=== PATIENT | male | born 1965 ===

== ENCOUNTER 2018-02-17 09:57 | Outpatient (CLI) | payer OTHER ==
--- NOTE | 2018-02-18 10:28 | XRay Report ---
FINAL REPORT EXAM: XRAY SHOULDER BILATERAL HISTORY: MUSCULAR DYSTRPOPHY, DIABETES, HIGH BLOOD PRESSURE, DISABILITY TECHNIQUE: 3 views of the right shoulder 3 views of the left shoulder PRIORS: None. FINDINGS: Right shoulder: The glenohumeral and acromioclavicular joints are normally aligned. There is mild inferior osteophyte formation of the acromioclavicular joint. The bones are normally mineralized. The soft tissues are unremarkable. Left shoulder: The glenohumeral and acromioclavicular joints are normally aligned. There is mild inferior osteophyte formation of the acromioclavicular joint. The bones are normally mineralized. The soft tissues are unremarkable. IMPRESSION: Mild osteoarthrosis of the bilateral acromioclavicular joints. Otherwise, normal bilateral shoulders
--- NOTE | 2018-02-18 10:28 | XRay Report ---
FINAL REPORT EXAM: XRAY LUMBAR AND SACRUM HISTORY: MUSCULAR DYSTRPOPHY, DIABETES, HIGH BLOOD PRESSURE, DISABILITY TECHNIQUE: 4 views of the lumbar spine PRIORS: None. FINDINGS: The lumbar vertebral bodies are normal in height. Vertebral alignment is normal. There is mild endplate osteophyte formation at T9-10, L1-2, L3-4 and L4-5. Otherwise, the disc spaces appear well-preserved. The soft tissues are unremarkable. IMPRESSION: Mild multilevel degenerative disc disease
--- NOTE | 2018-02-18 10:28 | XRay Report ---
FINAL REPORT EXAM: XRAY FOOT 2 VIEWS RIGHT HISTORY: MUSCULAR DYSTRPOPHY, DIABETES, HIGH BLOOD PRESSURE, DISABILITY TECHNIQUE: Two views of the right foot PRIORS: None. FINDINGS: The bones are normally aligned and diffusely demineralized. There is subchondral sclerosis and mild flattening of the 1st metatarsal head at the metatarsophalangeal joint. Otherwise, the joint spaces are well-preserved. There is no evidence of acute fracture. The soft tissues are unremarkable. There are plantar and Achilles calcaneal spurs. IMPRESSION: No evidence of acute fracture or subluxation. Mild osteoarthrosis of the 1st metatarsophalangeal joint. Osteopenia
== END 2018-02-17 09:58 | disposition home or self-care (01) ==
LOC: XRAY 09:57
PROVIDERS: ATTEND Internal Medicine
DX: Z02.71 Encounter for disability determination (principal); M51.36 Other intervertebral disc degeneration, lumbar region; M19.011 Primary osteoarthritis, right shoulder; M19.071 Primary osteoarthritis, right ankle and foot; M85.88 Other specified disorders of bone density and structure, other site; E11.9 Type 2 diabetes mellitus without complications; R03.0 Elevated blood-pressure reading, without diagnosis of hypertension; G71.00 Muscular dystrophy, unspecified
CPT/HCPCS: 72100